=== PATIENT | male | born 2000 | race Two or more races ===

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

== ENCOUNTER 2023-05-01 11:16 | Emergency (ER) | payer OTHER ==
[~2023-05-01] VITALS: Ht 177.8 cm; Wt 75.7 kg
[~2023-05-01 11:16] MED LIST: CONCERTA36 MG
== END 2023-05-01 13:05 | disposition home or self-care (01) ==
LOC: ER 11:16 → EMR PED 11:16
DX: L51.9 Erythema multiforme, unspecified (principal); R21 Rash and other nonspecific skin eruption

== ENCOUNTER 2023-11-30 02:40 | Emergency (ER) | payer OTHER ==
[~2023-11-30] VITALS: Ht 177.8 cm; Wt 76.2 kg
[2023-11-30] MEDS ORDERED: ACETAMINOPHEN 500 MG GEL..CAP PO STA (04:01)
== END 2023-11-30 04:50 | disposition home or self-care (01) ==
LOC: ER 02:41
DX: G24.3 Spasmodic torticollis (principal); V49.9XXA Car occupant (driver) (passenger) injured in unspecified traffic accident, initial encounter; Y93.89 Activity, other specified; Y92.89 Other specified places as the place of occurrence of the external cause; Y99.8 Other external cause status